=== PATIENT | male | born 1965 | race Caucasian/White ===

== ENCOUNTER 2017-06-12 10:47 | Emergency (ER) | payer OTHER ==
[~2017-06-12] VITALS: Ht 167.6 cm; Wt 84.0 kg
[~2017-06-12 10:47] MED LIST: INSLAN SQ; LOSA-20 PO; SIMV40TA5 PO
[2017-06-12 11:30] VITALS: BP 138/80
[2017-06-12] MEDS ORDERED: ACETAMINOPHEN 500MG TABLET PO ONE (13:45)
[2017-06-12 14:03] LABS: CLARITY URINE CLEAR (CLEAR); COLOR URINE YELLOW (YELLOW); GLUCOSE URINE NEGATIVE (NEGATIVE); KETONES URINE NEGATIVE (NEGATIVE); LEUKOCYTE ESTERASE URINE NEGATIVE (NEGATIVE); NITRITE URINE NEGATIVE (NEGATIVE); OCCULT BLOOD URINE 1+ (NEGATIVE); PH URINE 5.5 (4.5-8.0); PROTEIN URINE 3+ (NEGATIVE); SPECIFIC GRAVITY URINE 1.018 (1.005-1.030); UROBILINOGEN URINE 0.2 E.U./dL (0.2-1.0)
== END 2017-06-12 17:36 | disposition home or self-care (01) ==
LOC: ER 12:01
DX: M54.5 Low back pain (principal); R31.29 Other microscopic hematuria; I10 Essential (primary) hypertension; E11.9 Type 2 diabetes mellitus without complications; K76.89 Other specified diseases of liver; K82.4 Cholesterolosis of gallbladder; Z79.4 Long term (current) use of insulin
CPT/HCPCS: 76705; 81001; 99285